=== PATIENT | male | born 1960 | race American Indian/Alaskan Native ===

== ENCOUNTER 2020-12-27 17:01 | Emergency (ER) | payer SELFPAY ==
[2020-12-27 17:39] VITALS: BP 104/68
--- NOTE | 2020-12-27 18:06 | Emergency Department Report ---
Chief Complaint: Urogenital-Male Stated Complaint: POSS STD Time Seen by Provider: 12/27/20 18:05 - HPI History of Present Illness: Patient is here with with his partner requesting routine STD testing - ROS Review of Systems: No symptom - Exam Vital Signs: Vital Signs 12/27/20 17:36 Temperature 99.2 F Pulse Rate 86 Respiratory 18 Rate Blood Pressure 104/68 [Right] O2 Sat by Pulse 98 Oximetry Physical Exam: Alert and oriented S1-S2 abdomen soft nontender no penile discharge MSE screening note: Focused history and physical exam performed. Due to findings the following was ordered: I have explained to the patient that we do not do routine STD testing and have given him a referral to primary care to get testing done. Patient verbalizes understanding Patient discussed with doctor:: MAURIZIO JIANG ED Disposition for MSE Clinical Impression: Concern about STD in male without diagnosis Disposition: Z-07 MED SCREENING EXAM-LEFT Is pt being admited?: No Does the pt Need Aspirin: No Condition: Stable Referrals: GORAN CHURCH MD [Staff Physician] - 3-5 Days Time of Disposition: 18:06
== END 2020-12-27 18:10 | disposition left against medical advice (07) ==
LOC: ED 17:01
DX: Z20.2 Contact with and (suspected) exposure to infections with a predominantly sexual mode of transmission (principal); Z53.21 Procedure and treatment not carried out due to patient leaving prior to being seen by health care provider

== ENCOUNTER 2021-01-17 10:39 | Emergency (ER) | payer SELFPAY ==
[2021-01-17 11:07] VITALS: BP 98/69
--- NOTE | 2021-01-17 12:33 | Emergency Department Report ---
ED General Adult HPI - General Chief complaint: Weakness Stated complaint: LOSS OF ENERGY Source: patient Mode of arrival: Ambulatory Limitations: No Limitations - History of Present Illness Initial comments: 60-year-old -British male presents to the emergency room stating he has loss of energy for the last 2 or 3 days. Patient reports that on Wednesday he had allergic reaction of his upper lip and has been taking Benadryl. Patient denies any chest pain or shortness of breath. Patient is currently taking lisinopril 10 mg daily. He does not have a local primary care provider as his Dr. Alexandrea Eason is in [place]. Patient denies any fever chills no nausea no vomiting. Patient states that the swelling of his lip has improved. As noted the patient is a stable blood pressure 98/69 heart rate 69 and 99% on room air. Onset/Timin -: days(s) Severity scale (0 -10): 2 Improves with: none Worsens with: medication (benadryl) Associated Symptoms: denies other symptoms. denies: chest pain, fever/chills, loss of appetite, nausea/vomiting, shortness of breath Treatments Prior to Arrival: none - Related Data Allergies Allergy/AdvReac Type Severity Reaction Status Date / Time No Known Allergies Allergy Unverified 12/27/20 17:36 ED Review of Systems ROS: Stated complaint: LOSS OF ENERGY Other details as noted in HPI Comment: All other systems reviewed and negative ED Past Medical Hx - Past Medical History Previous Medical History?: Yes Hx Hypertension: Yes - Surgical History Past Surgical History?: No ED Physical Exam - General Limitations: No Limitations General appearance: alert, in no apparent distress - Head Head exam: Present: atraumatic, normocephalic - Eye Eye exam: Present: normal appearance - ENT ENT exam: Present: mucous membranes moist, normal external ear exam - Neck Neck exam: Present: normal inspection, full ROM - Respiratory Respiratory exam: Present: normal lung sounds bilaterally. Absent: respiratory distress, chest wall tenderness, accessory muscle use - Cardiovascular Cardiovascular Exam: Present: regular rate, normal rhythm - GI/Abdominal GI/Abdominal exam: Present: soft. Absent: distended, tenderness - Rectal Rectal exam: Present: deferred - Extremities Exam Extremities exam: Present: normal inspection - Back Exam Back exam: Present: normal inspection - Neurological Exam Neurological exam: Present: alert, oriented X3 - Psychiatric Psychiatric exam: Present: normal affect, normal mood - Skin Skin exam: Present: warm, dry, intact, normal color. Absent: rash ED Course Vital Signs 01/17/21 11:06 Temperature 97.7 F Pulse Rate 69 Respiratory 18 Rate Blood Pressure 98/69 O2 Sat by Pulse 99 Oximetry ED Medical Decision Making - Medical Decision Making 60-year-old -British male presents to the emergency room stating he has loss of energy for the last 2 or 3 days. Patient reports that on Wednesday he had allergic reaction of his upper lip and has been taking Benadryl. Patient denies any chest pain or shortness of breath. Patient is currently taking lisinopril 10 mg daily. He does not have a local primary care provider as his Dr. Alexandrea Eason is in [place]. Patient denies any fever chills no nausea no vomiting. Patient states that the swelling of his lip has improved. As noted the patient is a stable blood pressure 98/69 heart rate 69 and 99% on room air. We will discontinue patient on lisinopril as concern for angioedema. Discussed with patient his low energy and tiredness is most likely due to the use of Benadryl. As Benadryl has a side effect of sedation. Also discussed with patient to increase his fluid intake. Follow-up with his primary care provider and I will refer him to a primary care provider that is local. Critical care attestation.: If time is entered above; I have spent that time in minutes in the direct care of this critically ill patient, excluding procedure time. ED Disposition Clinical Impression: Angioedema, History of hypertension Disposition: TO HOME OR SELFCARE Is pt being admited?: No Does the pt Need Aspirin: No Condition: Stable Instructions: Angioedema, [id number] Additional Instructions: Discontinue lisinopril as this is most likely the cause of your swelling of your upper lip. This can be a serious concern if you continue and have another episode of angioedema. I recommend discontinuing the Benadryl as this is most likely making you tired and low energy. Increase your water intake. Follow-up with a primary care provider I have listed 1 below for your convenience. Your blood pressure is stable at 98/69. Referrals: GORAN CHURCH MD [Staff Physician] - 3-5 Days KYLER CASTRO MD [Staff Physician] - 3-5 Days Forms: Work/School Release Form(ED)
--- NOTE | 2021-01-17 18:16 | Electrocardiograph Report ---
[facility] Test Date: 2021-01-17 Test Time: 11:12:27 Pat Name: KYA AVALOS Department: Room: Gender: M Medical/Surgery Registered Nurse: : [id number] Requested By: MAURIZIO JIANG Order Number: [id number] Reading MD: Kameron Calhoun Measurements Intervals [place] Rate: 61 P: 74 VA: 145 QRS: -65 QRSD: 89 T: -7 QT: 433 QTc: 437 Interpretive Statements Sinus rhythm Left axis deviation Possible old anteroseptal infarct No previous ECG available for comparison Electronically Signed On 01-17-2021 18:16:38 EDT by Kameron Calhoun
== END 2021-01-17 13:15 | disposition home or self-care (01) ==
LOC: ED 10:39
DX: T78.3XXA Angioneurotic edema, initial encounter (principal); I10 Essential (primary) hypertension; Y92.89 Other specified places as the place of occurrence of the external cause
CPT/HCPCS: 93005; 99281